=== PATIENT | male | born 1975 | race Caucasian/White ===

== ENCOUNTER → 2016-07-29 | Outpatient (CLI) | payer OTHER ==
--- NOTE | 2016-07-29 13:00 | XR ---
EXAMINATION TYPE: XR knee limited LT DATE OF EXAM: 07/29/2016 12:54 PM CLINICAL HISTORY: pain TECHNIQUE: Two views of the left knee are obtained. COMPARISON: None. FINDINGS: There is no acute fracture/dislocation. The tri-compartment joint spaces appear moderatel y narrowed. There are postoperative changes are noted. The overlying soft tissue appears unremarkable . IMPRESSION: There is no acute fracture or dislocation ICD 10 NO FRACTURE, INITIAL EVALUATION
--- NOTE | 2016-07-29 13:03 | XR ---
EXAMINATION TYPE: XR forearm bilateral DATE OF EXAM: 07/29/2016 12:54 PM CLINICAL HISTORY: pain TECHNIQUE: Frontal and lateral images of the right forearm are obtained. COMPARISON: None. FINDINGS: There is no acute fracture/dislocation evident. Fixation plate and screws traversing site of remote ulnar fracture identified. Several of the screws appear to be fractured. Fracture line cont inues to be visible compatible with nonunion. The joint spaces appear within normal limits. The over lying soft tissue appears unremarkable. IMPRESSION: There is no acute fracture or dislocation. Postoperative changes as discussed. EXAMINATION TYPE: XR forearm bilateral DATE OF EXAM: 07/29/2016 12:54 PM CLINICAL HISTORY: pain TECHNIQUE: Frontal and lateral images of the left forearm are obtained. COMPARISON: None. FINDINGS: There is no acute fracture/dislocation evident. Fixation plate and screws are noted involv ing the radius and ulna. No fracture lines are visible this time. The joint spaces appear within norm al limits. The overlying soft tissue appears unremarkable.
== END | disposition home or self-care (01) ==
LOC: RADXRMAIN 12:20
PROVIDERS: ATTEND Family Medicine
DX: M25.562 Pain in left knee (principal); M79.631 Pain in right forearm; M79.632 Pain in left forearm; Z98.890 Other specified postprocedural states

== ENCOUNTER 2024-06-24 10:29 | Inpatient (IN) | payer BC, OTHER ==
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
[2024-06-24 10:59] LABS: Basophils # (A) 0.1 k/uL (0-0.2); Basophils % (A) 1 %; Eosinophils # (A) 0.1 k/uL (0-0.7); Eosinophils % (A) 1 %; HCT 44.6 % (39.0-53.0); HGB 15.2 gm/dL (13.0-17.5); Lymphocytes # (A) 1.8 k/uL (1.0-4.8); Lymphocytes % (A) 19 %; MCH 32.6 pg (25.0-35.0); MCHC 33.9 g/dL (31.0-37.0); Mean Platelet Volume 7.5; Monocytes # (A) 0.5 k/uL (0-1.0); Monocytes % (A) 5 %; Neutrophils # (A) 6.9 k/uL (1.3-7.7); Neutrophils % (A) 73 %; Platelet Count 261 k/uL (150-450); RBC 4.65 m/uL (4.30-5.90); RDW 12.1 % (11.5-15.5); WBC 9.4 k/uL (3.8-10.6)
[2024-06-24 11:13] LABS: Partial Thromboplastin Time 24.5 sec (22.0-30.0); Prothrombin Time 11.3 sec (10.0-12.5)
[2024-06-24 11:17] LABS: ALT 39 U/L (4-49); AST 28 U/L (17-59); African American GFR (CKD) >90 (>60 ml/min/1.73 sqM); Albumin 4.6 g/dL (3.5-5.0); Alkaline Phosphatase 87 U/L (38-126); Anion Gap 7 mmol/L; Blood Urea Nitrogen 9 mg/dL (9-20); Calcium 9.1 mg/dL (8.4-10.2); Carbon Dioxide 25 mmol/L (22-30); Chloride 102 mmol/L (98-107); Glucose 303 mg/dL (74-99); Magnesium 1.7 mg/dL (1.6-2.3); Non-African American GFR(CKD) >90 (>60 ml/min/1.73 sqM); Potassium 4.2 mmol/L (3.5-5.1); Sodium 134 mmol/L (137-145); Total Bilirubin 0.7 mg/dL (0.2-1.3)
[2024-06-24] MEDS: ASPIRIN 81 MG PO STA (12:45)
[2024-06-24] MEDS: NITROGLYCERIN OINT 1 INCH/GM PACKET TOPICAL STA (12:46)
--- NOTE | 2024-06-24 13:02 | XR ---
EXAMINATION TYPE: XR chest 2V DATE OF EXAM: 06/24/2024 11:54 AM COMPARISON: None. CLINICAL INDICATION: Male, 49 years old with history of Chest Pain, TECHNIQUE: XR chest 2V view(s) obtained. FINDINGS: The heart size is normal. The pulmonary vasculature is normal. The lungs are clear. IMPRESSION: 1. No acute pulmonary process. [facility], , 06/24/2024 1:00 PM
[2024-06-24] MEDS: ONDANSETRON 4 MG/2 ML VIAL IVP STA (13:03)
[2024-06-24] MEDS ORDERED: NITROGLYCERIN SL TABS 0.4 MG TAB SUBLINGUAL PRN (13:11)
[2024-06-24] MEDS: HYDROmorphone 0.5 MG/0.5 ML SYRINGE IVP STA (13:24)
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
[2024-06-24 15:58] LABS: Glucose,Whole Blood 223 mg/dL (70-110)
[2024-06-24] MEDS: HEPARIN SODIUM 1,000 UN/ML (10ML VL) IVP STA (16:26)
[2024-06-24] MEDS: ATORVASTATIN 80 MG TAB PO STA (16:27)
[2024-06-24 18:26] LABS: Glucose,Whole Blood 207 mg/dL (70-110)
[2024-06-24] MEDS: NITROGLYCERIN OINT 1 INCH/GM PACKET TOPICAL SCH (18:42)
[2024-06-24] MEDS ORDERED: HEPARIN SODIUM 1,000 UN/ML (10ML VL) IV PRN (19:16)
[2024-06-24] MEDS: METOPROLOL TARTRATE 50 MG TAB PO STA (19:34)
[2024-06-24] MEDS: HEPARIN SODIUM 1,000 UN/ML (10ML VL) IV ONE ×2 (19:41→20:30)
[2024-06-24] MEDS: HEPARIN SOD,PORK IN 0.45% NACL 25,000 UNIT in 0.45% NACL 1 250ML.BAG IV SCH (19:41)
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
[2024-06-24] MEDS: SODIUM CHLORIDE 0.9% 500 ML 500 ML IV ONE (20:15)
[2024-06-24] MEDS: MIDAZOLAM 2 MG/2 ML VIAL IVP ONE (20:15)
[2024-06-24] MEDS: LIDOCAINE 1% INJ 10MG/ML (20 ML MDV) SQ ONE (20:16)
[2024-06-24] MEDS: VERAPAMIL SYRINGE (5 MG/10 ML) INTRAARTER ONE (20:19)
[2024-06-24] MEDS: IOPAMIDOL-370 100ML BTL INJ ONE (20:36)
[2024-06-24] MEDS ORDERED: RX INFO: IV CONTRAST WAS GIVEN 1 EACH MISC MISCELLANE PRN (20:40)
--- NOTE | 2024-06-24 20:50 | P.PCN ---
Date of Procedure: 06/24/24 Operative Findings: CARDIAC CATHETERIZATION PERFORMING PHYSICIAN: Darion Apodaca MD, RPVI PROCEDURE PERFORMED: 1. Selective right and left coronary angiogram and left heart catheterization 2. IFR of the LAD 3. Ultrasound-guided access of the right radial artery INDICATION: Acute coronary send COMPLICATION: None APPROACH: Right radial artery LEVEL OF SEDATION: Moderate with a sedation length of 26 minutes minutes PROCEDURE DESCRIPTION: After obtaining an informed consent, the patient was brought to cardiac construction craft laborer. Local anesthesia was performed using lidocaine subcutaneously. The right radial artery was cannulated using Seldinger technique, the guidewire passed easily, following that we advanced a 5-Canadian sheath dilator assembly, the wire and dilator were removed and sheath was flushed. Following that, 2 mg of verapamil along with 5000 unit heparin were given. Selective right and left coronary angiogram using a 6-Canadian JR4 and JL 3.5 catheters. Following that we did left heart catheterization using 6-Canadian pigtail catheter. After that we decided to do an IFR of the LAD with after zeroing Dobler wire and equalizing between the Dobler wire and guiding catheter and that was JL 3.5 guiding catheter the left main was engaged and the LAD was wired. The Dobler wire was advanced to the distal LAD and IFR came to be at 0.88 and subsequently pulling back the Dobler wire to be between the lesion in the distal LAD and proximal LAD with IFR came to be at 0.91 which is nonischemic The procedure was completed there was no complication. SELECTIVE CORONARY ANGIOGRAM: The right coronary artery: Small to medium caliber vessel nondominant vessel with mild disease Left main: Is angiographically normal The left circumflex: Large-caliber vessel a dominant vessel with mild disease only. The left anterior descending artery: Has a focal intermediate lesion proximally documented to be nonflow limiting by Doppler wire with IFR of 0.91 and diffuse intermediate lesion distally documented to be flow-limiting with IFR of 0.88 HEMODYNAMICS: The LVEDP was about 10 mmHg with no significant gradient across aortic valve CONCLUSION: 1. None flow-limiting involving the proximal LAD and flow-limiting lesion involving the distal LAD 2. Normal left-sided filling pressure POSTPROCEDURE MANAGEMENT: Consider aggressive cholesterol control and risk factors modification and medical treatment at this point Consider PCI of the LAD distally if the patient remains symptomatic
[2024-06-24 21:25] LABS: Glucose,Whole Blood 222 mg/dL (70-110)
[2024-06-24] MEDS: INSULIN ASPART (NovoLOG) 100 UNIT/ML VIAL SQ SCH (21:46)
[2024-06-24] MEDS: ACETAMINOPHEN TAB 325 MG TAB PO PRN (21:48)
[2024-06-24] MEDS: METOPROLOL TARTRATE 50 MG TAB PO SCH (22:29)
[2024-06-24] MEDS: SODIUM CHLORIDE 0.9% 1,000 ML IV SCH (22:40)
[2024-06-25 06:21] LABS: Glucose,Whole Blood 226 mg/dL (70-110)
[2024-06-25 07:02] LABS: Basophils # (A) 0.1 k/uL (0-0.2); Basophils % (A) 1 %; Eosinophils # (A) 0.1 k/uL (0-0.7); Eosinophils % (A) 1 %; HCT 43.8 % (39.0-53.0); HGB 14.4 gm/dL (13.0-17.5); Lymphocytes # (A) 2.2 k/uL (1.0-4.8); Lymphocytes % (A) 32 %; MCH 31.7 pg (25.0-35.0); MCHC 32.9 g/dL (31.0-37.0); MCV 96.3 fL (80.0-100.0); Mean Platelet Volume 7.8; Monocytes # (A) 0.4 k/uL (0-1.0); Monocytes % (A) 6 %; Neutrophils # (A) 3.9 k/uL (1.3-7.7); Neutrophils % (A) 56 %; Platelet Count 236 k/uL (150-450); RBC 4.55 m/uL (4.30-5.90); RDW 12.2 % (11.5-15.5)
[2024-06-25 07:14] LABS: INR 1.1 (<1.2); Prothrombin Time 11.9 sec (10.0-12.5)
[2024-06-25] MEDS: CLOPIDOGREL 75 MG TAB PO SCH (07:57)
[2024-06-25] MEDS: ASPIRIN 81 MG PO SCH (07:57)
[2024-06-25] MEDS: LOSARTAN 25 MG TAB PO SCH (07:58)
[2024-06-25] MEDS: ATORVASTATIN 80 MG TAB PO SCH (08:00)
[2024-06-25] MEDS ORDERED: ASPIRIN 325 MG TAB PO SCH (09:00)
[2024-06-25 09:30] LABS: Chol/HDL Ratio 4.87 Ratio; LDL Cholesterol,Calculated 112.4 mg/dL (0.0-131.0)
[2024-06-25] MEDS: CLOPIDOGREL 75 MG TAB PO STA (11:09)
[2024-06-25 11:40] LABS: Glucose,Whole Blood 306 mg/dL (70-110)
--- NOTE | 2024-06-25 12:13 | CA ---
Transthoracic Echo Report Name: Crow Arana Age: 49 Gender: M : 1975 Exam Date: 06/25/2024 07:59 Exam Location: [facility] Ht (in): 70 Wt (lb): 200 Ordering Physician: Darion Apodaca MD ([id number]) Attending/Referring Phys: Data Analysis Manager Carlene Green RDCS Procedure CPT: Indications: ACS Cardiac Hx: Technical Quality: Technically difficult study Contrast 1: Definity Total Dose (mL): 1 Contrast 2: Total Dose (mL): MEASUREMENTS (Male / Female) Normal Values 2D ECHO LV Diastolic Diameter PLAX 4.9 cm 4.2 - 5.9 / 3.9 - 5.3 cm LV Systolic Diameter PLAX 3.2 cm IVS Diastolic Thickness 0.9 cm 0.6 - 1.0 / 0.6 - 0.9 cm LVPW Diastolic Thickness 1.0 cm 0.6 - 1.0 / 0.6 - 0.9 cm LV Relative Wall Thickness 0.4 LVOT Diameter 2.1 cm LA Volume 43.5 cm??? 18 - 58 / 22 - 52 cm??? LA Volume Index 20.3 cm???/m??? 16 - 28 cm???/m??? Ascending Aorta Diameter 3.4 cm DOPPLER AV Peak Velocity 149.3 cm/s AV Peak Gradient 8.9 mmHg AV Mean Velocity 95.5 cm/s AV Mean Gradient 4.2 mmHg AV Velocity Time Integral 29.3 cm LVOT Peak Velocity 108.0 cm/s LVOT Peak Gradient 4.7 mmHg LVOT Velocity Time Integral 21.9 cm LVOT Stroke Volume 78.2 cm??? LVOT Stroke Volume Index 37.5 ml/m??? LVOT Cardiac Index 2415.5 cm???/min???m??? AV Area Cont Eq vti 2.7 cm??? AV Area Cont Eq pk 2.6 cm??? MV Area PHT 6.0 cm??? Mitral E Point Velocity 79.7 cm/s Mitral A Point Velocity 66.4 cm/s Mitral E to A Ratio 1.2 MV Deceleration Time 127.0 ms FINDINGS Left Ventricle Left ventricular ejection fraction is estimated at 50-55 %. Left ventricular cavity size normal. Left ventricular wall thickness normal. Hypokinetic anterior wall. Right Ventricle Normal right ventricular size and function. Unable to estimate the right ventricular systolic pressure. Right Atrium Normal right atrial size. Left Atrium Normal left atrial size. Mitral Valve Structurally normal mitral valve. No evidence for mitral valve prolapse. No mitral stenosis. Trace to mild mitral regurgitation. Aortic Valve Trileaflet aortic valve. Aortic valve sclerosis. No aortic valve stenosis or regurgitation. Tricuspid Valve Structurally normal tricuspid valve. No tricuspid stenosis. Trace tricuspid regurgitation. Pulmonic Valve Pulmonic valve not well visualized. No pulmonic stenosis. No pulmonic regurgitation. Pericardium No pericardial effusion. Aorta Normal size aortic root and proximal ascending aorta. CONCLUSIONS Indication for echo: Acute myocardial infarction Preserved LV systolic function with anteroapical hypokinesis, ejection fraction of about 50 to 55% Previewed by: Dr. Garfield Benz MD (Electronically Signed) Final Date: 25 June 2024 12:12
[2024-06-25] MEDS ORDERED: ALBUTEROL NEBULIZED 2.5 MG/3 ML INHALATION PRN (12:28)
--- NOTE | 2024-06-25 12:45 | P.PN ---
Subjective Progress Note Date: 06/25/24 This is Isaac Young NP, I'm dictating on behalf of Dr. Benz's H&P and A&P. Patient was interviewed and examined. Patient is a pleasant 49-year-old male who presented to the hospital with chest pain and a subsequent acute myocardial infarction. Patient had spontaneous thrombolysis of the offending clot with EKGs demonstrating the time of thrombolysis and improvement. Patient reports that he is feeling good today. He is denying chest pain and shortness of breath today. GENERAL: Well-appearing, well-nourished and in no acute distress. NECK: Supple without JVD or thyromegaly. LUNGS: Breath sounds clear to auscultation bilaterally. Respiration equal and unlabored. No wheezes, rales or rhonchi. HEART: Regular rate and rhythm without murmurs, rubs or gallops. S1 and S2 heard. EXTREMITIES: Normal range of motion, no edema. No clubbing or cyanosis. Peripheral pulses intact and strong. VITALS: Temp 98.3, pulse 64, respirations 16, blood pressure 124/70, O2 saturation 97% on room air TELEMETRY: Sinus mechanism LABS: White count 7, hemoglobin 14.4, platelets 236, triglycerides 54, cholesterol 155, LDL 112.4, HDL 31.8 IMPRESSION: 1. Acute myocardial infarction 2. Right bundle branch block 3. Longstanding type 2 diabetes 4. Current smoker PLAN: Give Plavix 300 mg today. Continue heparin. Will continue to monitor patient to ensure medical treatment is working. Patient had spontaneous thrombolysis of the clot in the distal LAD, which is a small caliber vessel. Further recommendations based on patient's clinical course. Objective - Vital Signs Vital signs: Vital Signs Temp 98.3 F 06/25/24 07:52 Pulse 64 06/25/24 07:52 Resp 16 06/25/24 07:52 BP 124/70 06/25/24 07:52 Pulse Ox 96 06/25/24 09:13 FiO2 Intake & Output 06/24/24 06/25/24 06/25/24 18:59 06:59 18:59 Intake Total 144.5 240 Balance 144.5 240 Weight 90.718 kg 92.1 kg Intake: IV 50 Intake, IV Titration 94.5 Amount Heparin Sod,Pork in 0.45% 94.5 NaCl 25,000 unit In 0.45 % NaCl 1 250ml.bag @ 11. 023 UNITS/KG/HR 10 mls/hr IV .Q24H [facility] Rx#: [id number] Oral 240 Other: Voiding Method Toilet Urinal # Voids 1 - Labs CBC & Chem 7: 06/25/24 06:36 06/24/24 10:51 Labs: Abnormal Lab Results - Last 24 Hours (Table) 06/24/24 06/24/24 06/24/24 Range/Units 14:30 15:57 18:12 POC Glucose (mg/dL) 223 H (70-110) mg/dL Troponin I 1.500 H* 19.500 H* (0.000-0.034) ng/mL HDL Cholesterol (40.00-60.00) mg/dL 06/24/24 06/24/24 06/25/24 Range/Units 18:24 21:24 06:20 POC Glucose (mg/dL) 207 H 222 H 226 H (70-110) mg/dL Troponin I (0.000-0.034) ng/mL HDL Cholesterol (40.00-60.00) mg/dL 06/25/24 06/25/24 Range/Units 06:36 11:38 POC Glucose (mg/dL) 306 H (70-110) mg/dL Troponin I (0.000-0.034) ng/mL HDL Cholesterol 31.80 L (40.00-60.00) mg/dL
[2024-06-25 13:45] LABS: Blood Urea Nitrogen 8.6 mg/dL (9.0-27.0); Calcium 8.7 mg/dL (8.7-10.3); Carbon Dioxide 20.2 mmol/L (21.6-31.8); Chloride 102 mmol/L (96-109); Glucose 232 mg/dL (70-110); Magnesium 1.9 mg/dL (1.5-2.4); Potassium 4.3 mmol/L (3.5-5.5); Sodium 135 mmol/L (135-145)
--- NOTE | 2024-06-25 14:04 | P.PN ---
Subjective Progress Note Date: 06/25/24 Patient is reevaluated for his chest pain. Overnight his troponin went from 0- 1.5. A STEMI alert was called. ER had already put you on aspirin atorvastatin and losartan. He was finally taken to [facility] after third troponin returned at 19. He was found to have a normal left-sided filling pressure and a flow minute involvement of the proximal LAD. Stent was not needed. PCI to LAD distal stent was recommended in the future. Patient indicates he is now pain-free. Although he was found eating a salad with ranch dressing and pepperoni pizza. Diet modification was discussed with him at length along with compliance with his medications. His family was at bedside seems to understand as well. Objective - Vital Signs Vital signs: Vital Signs Temp 98.3 F 06/25/24 07:52 Pulse 64 06/25/24 07:52 Resp 16 06/25/24 07:52 BP 124/70 06/25/24 07:52 Pulse Ox 96 06/25/24 09:13 FiO2 Intake & Output 06/24/24 06/25/24 06/25/24 18:59 06:59 18:59 Intake Total 144.5 320.5 Balance 144.5 320.5 Weight 90.718 kg 92.1 kg Intake: IV 50 Intake, IV Titration 94.5 80.5 Amount Heparin Sod,Pork in 0.45% 94.5 80.5 NaCl 25,000 unit In 0.45 % NaCl 1 250ml.bag @ 11. 023 UNITS/KG/HR 10 mls/hr IV .Q24H [facility] Rx#: [id number] Oral 240 Other: Voiding Method Toilet Urinal # Voids 1 - Exam general: The patient is awake and alert, in no distress, and does not appear acutely ill. Neck: The neck is supple, there is no thyromegaly, lymphadenopathy, tenderness or JVD. Cardiovascular: S1S2 is normal, There is a regular rate and rhythm. No murmur, rub or gallop is appreciated. Respiratory: Lungs are clear to auscultation bilaterally, respirations are non-labored, breath sounds are equal. Gastrointestinal: Soft, non-distended, non-tender abdomen without masses or organomegaly noted. There is no rebound or guarding present. Bowel sounds are unremarkable. Musculoskeletal: Normal ROM, no tenderness, There is no pedal edema. There is no calf tenderness or swelling. No cords were appreciated. Neurological: CN II-XII intact, there are no obvious motor or sensory deficits. Coordination appears grossly intact. Speech is normal. Skin: Skin is warm and dry and no rashes or lesions are noted. - Labs CBC & Chem 7: 06/25/24 06:36 06/25/24 06:36 Labs: Abnormal Lab Results - Last 24 Hours (Table) 06/24/24 06/24/24 06/24/24 Range/Units 14:30 15:57 18:12 Carbon Dioxide (21.6-31.8) mmol/L Anion Gap (4.00-12.00) mmol/L BUN (9.0-27.0) mg/dL Glucose (70-110) mg/dL POC Glucose (mg/dL) 223 H (70-110) mg/dL Troponin I 1.500 H* 19.500 H* (0.000-0.034) ng/mL HDL Cholesterol (40.00-60.00) mg/dL 06/24/24 06/24/24 06/25/24 Range/Units 18:24 21:24 06:20 Carbon Dioxide (21.6-31.8) mmol/L Anion Gap (4.00-12.00) mmol/L BUN (9.0-27.0) mg/dL Glucose (70-110) mg/dL POC Glucose (mg/dL) 207 H 222 H 226 H (70-110) mg/dL Troponin I (0.000-0.034) ng/mL HDL Cholesterol (40.00-60.00) mg/dL 06/25/24 06/25/24 06/25/24 Range/Units 06:36 06:36 11:38 Carbon Dioxide 20.2 L (21.6-31.8) mmol/L Anion Gap 12.80 H (4.00-12.00) mmol/L BUN 8.6 L (9.0-27.0) mg/dL Glucose 232 H (70-110) mg/dL POC Glucose (mg/dL) 306 H (70-110) mg/dL Troponin I (0.000-0.034) ng/mL HDL Cholesterol 31.80 L (40.00-60.00) mg/dL Assessment and Plan (1) Acute [place] Current Visit: Yes Status: Acute Code(s): I21.9 - ACUTE MYOCARDIAL INFARCTION, UNSPECIFIED SNOMED Code(s): 40920839 (2) Type 2 diabetes mellitus without complications Current Visit: Yes Status: Ruled-out Code(s): E11.9 - TYPE 2 DIABETES MELLITUS WITHOUT COMPLICATIONS SNOMED Code(s): 345555454 (3) Non-compliance Current Visit: Yes Status: Acute Code(s): Z91.199 - PT NONCOMPL WITH OTHER MED TRTMT AND REGIMEN D/T UNSP REASON SNOMED Code(s): 3527988 (4) Chest pain Current Visit: Yes Status: Acute Code(s): R07.9 - CHEST PAIN, UNSPECIFIED SNOMED Code(s): 06568693 (5) Type 2 diabetes mellitus with other circulatory complications Current Visit: Yes Status: Acute Code(s): E11.59 - TYPE 2 DIABETES MELLITUS WITH OTH CIRCULATORY COMPLICATIONS SNOMED Code(s): 56460872 (6) Type 2 diabetes mellitus with other specified complication Current Visit: Yes Status: Acute Code(s): E11.69 - TYPE 2 DIABETES MELLITUS WITH OTHER SPECIFIED COMPLICATION SNOMED Code(s): 29434923 (7) Dyslipidemia (high LDL; low HDL) Current Visit: Yes Status: Acute Code(s): E78.5 - HYPERLIPIDEMIA, UNSPECIFIED SNOMED Code(s): 767563661 Plan: Wait on further recommendations per cardiology, continue current heparin drip ,repeat labs in a.m., wait on his A1c, continue his medications as ordered, he will be reevaluated the next 24 hours.
[2024-06-25 17:00] LABS: Glucose,Whole Blood 257 mg/dL (70-110)
[2024-06-25 20:11] LABS: Glucose,Whole Blood 192 mg/dL (70-110)
[2024-06-25] MEDS: INSULIN DETEMIR (LEVEMIR) 100 UNIT/ML SYR SQ SCH (20:22)
[2024-06-26 07:13] LABS: Glucose,Whole Blood 133 mg/dL (70-110)
[2024-06-26 07:13] LABS: Basophils # (A) 0.1 k/uL (0-0.2); Basophils % (A) 1 %; Eosinophils # (A) 0.1 k/uL (0-0.7); Eosinophils % (A) 1 %; HCT 44.2 % (39.0-53.0); HGB 14.9 gm/dL (13.0-17.5); Lymphocytes # (A) 2.2 k/uL (1.0-4.8); Lymphocytes % (A) 28 %; MCH 32.1 pg (25.0-35.0); MCHC 33.7 g/dL (31.0-37.0); MCV 95.2 fL (80.0-100.0); Mean Platelet Volume 8.3; Monocytes # (A) 0.6 k/uL (0-1.0); Monocytes % (A) 7 %; Neutrophils # (A) 4.7 k/uL (1.3-7.7); Neutrophils % (A) 60 %; Platelet Count 251 k/uL (150-450); RBC 4.65 m/uL (4.30-5.90); RDW 12.6 % (11.5-15.5); WBC 7.8 k/uL (3.8-10.6)
[2024-06-26 09:16] LABS: ALT 46 U/L (4-49); AST 59 U/L (17-59); African American GFR (CKD) >90 (>60 ml/min/1.73 sqM); Albumin 3.9 g/dL (3.5-5.0); Alkaline Phosphatase 70 U/L (38-126); Anion Gap 7 mmol/L; Blood Urea Nitrogen 13 mg/dL (9-20); Calcium 8.7 mg/dL (8.4-10.2); Carbon Dioxide 26 mmol/L (22-30); Chloride 101 mmol/L (98-107); Glucose 270 mg/dL (74-99); Non-African American GFR(CKD) >90 (>60 ml/min/1.73 sqM); Potassium 4.7 mmol/L (3.5-5.1); Sodium 134 mmol/L (137-145); Total Protein 6.9 g/dL (6.3-8.2)
[2024-06-26 09:57] VITALS: RESP 16
[2024-06-26] MEDS: CLOPIDOGREL 75 MG TAB PO SCH (09:58)
--- NOTE | 2024-06-26 11:24 | P.PN ---
Subjective Progress Note Date: 06/26/24 This is Isaac Young NP, I'm dictating on behalf of Dr. Benz's H&P and A&P. Patient was interviewed and examined. Patient is a pleasant 49-year-old male who came into the hospital with a NH, that spontaneously resolved due to thrombolysis. Patient reports that he is feeling okay today. He is denying chest pain, heart palpitations, shortness of breath, dizziness. He reports has been walking around the room and up and down the hallways without any symptoms. GENERAL: Well-appearing, well-nourished and in no acute distress. NECK: Supple without JVD or thyromegaly. LUNGS: Breath sounds clear to auscultation bilaterally. Respiration equal and unlabored. No wheezes, rales or rhonchi. HEART: Regular rate and rhythm without murmurs, rubs or gallops. S1 and S2 heard. EXTREMITIES: Normal range of motion, no edema. No clubbing or cyanosis. Peripheral pulses intact and strong. VITALS: Temp 98.0, pulse 69, respirations 16, blood pressure 142/75, O2 saturation 99% on room air TELEMETRY: Sinus mechanism LABS: Sodium 134, potassium 4.7, BUN 13, creatinine 0.71 IMPRESSION: 1. Acute myocardial infarction 2. Right bundle branch block 3. Longstanding type 2 diabetes 4. Current smoker PLAN: Continue dual antiplatelet therapy with aspirin 81 mg daily, clopidogrel 75 mg daily. Continue atorvastatin 80 mg daily. Continue losartan 25 mg daily. Continue metoprolol succinate 50 mg daily. From a cardiology standpoint the patient can be discharged. Follow-up with Dr. Benz in 1 to 2 weeks. Objective - Vital Signs Vital signs: Vital Signs Temp 98.0 F 06/26/24 09:57 Pulse 69 06/26/24 09:57 Resp 16 06/26/24 09:57 BP 142/75 06/26/24 09:57 Pulse Ox 99 06/26/24 09:57 FiO2 Intake & Output 06/25/24 06/26/24 06/26/24 18:59 06:59 18:59 Intake Total 870.5 20 245 Balance 870.5 20 245 Weight 92.6 kg Intake: IV 10 20 5 Invasive Line 1 10 20 5 Intake, IV Titration 80.5 Amount Heparin Sod,Pork in 0.45% 80.5 NaCl 25,000 unit In 0.45 % NaCl 1 250ml.bag @ 11. 023 UNITS/KG/HR 10 mls/hr IV .Q24H [facility] Rx#: [id number] Oral 780 240 Other: Voiding Method Toilet Toilet Toilet Urinal Urinal Urinal # Voids 3 1 # Bowel Movements 1 - Labs CBC & Chem 7: 06/26/24 06:19 06/26/24 08:02 Labs: Abnormal Lab Results - Last 24 Hours (Table) 06/25/24 06/25/24 06/25/24 Range/Units 06:36 06:36 11:38 Sodium (137-145) mmol/L Carbon Dioxide 20.2 L (21.6-31.8) mmol/L Anion Gap 12.80 H (4.00-12.00) mmol/L BUN 8.6 L (9.0-27.0) mg/dL Glucose 232 H (70-110) mg/dL POC Glucose (mg/dL) 306 H (70-110) mg/dL Hemoglobin A1c 9.8 H (<=6.0) % 06/25/24 06/25/24 06/26/24 Range/Units 16:49 20:10 07:12 Sodium (137-145) mmol/L Carbon Dioxide (21.6-31.8) mmol/L Anion Gap (4.00-12.00) mmol/L BUN (9.0-27.0) mg/dL Glucose (70-110) mg/dL POC Glucose (mg/dL) 257 H 192 H 133 H (70-110) mg/dL Hemoglobin A1c (<=6.0) % 06/26/24 Range/Units 08:02 Sodium 134 L (137-145) mmol/L Carbon Dioxide (21.6-31.8) mmol/L Anion Gap (4.00-12.00) mmol/L BUN (9.0-27.0) mg/dL Glucose 270 H (70-110) mg/dL POC Glucose (mg/dL) (70-110) mg/dL Hemoglobin A1c (<=6.0) %
[2024-06-26 11:34] LABS: Glucose,Whole Blood 359 mg/dL (70-110)
[2024-06-26 11:47] VITALS: BP 130/79; PULSE 57; TEMP 98.3
--- NOTE | 2024-06-26 12:32 | P.DS ---
Providers Date of admission: 06/24/24 13:12 Expected date of discharge: 06/26/24 Attending physician: Nicola Esqueda Consults: 06/24/24 13:11 Consult Physician Urgent Consulting Provider: [facility] Consult Reason/Comments: Chest pain Do you want consulting provider notified?: Yes Primary care physician: Yoni Castañeda - Discharge Diagnosis(es) (1) Acute [place] Current Visit: Yes Status: Acute (2) Type 2 diabetes mellitus without complications Current Visit: Yes Status: Ruled-out (3) Non-compliance Current Visit: Yes Status: Acute (4) Chest pain Current Visit: Yes Status: Acute (5) Type 2 diabetes mellitus with other circulatory complications Current Visit: Yes Status: Acute (6) Type 2 diabetes mellitus with other specified complication Current Visit: Yes Status: Acute (7) Dyslipidemia (high LDL; low HDL) Current Visit: Yes Status: Acute Hospital Course: Patient was reevaluated. He is cleared by cardiology. He has been started on some new medications. He reports previously being prescribed atorvastatin but not taking it due to side effects. Diet education was done extensively with him and controlling his diabetes. He is stable and will be sent home. Plan - Discharge Summary Discharge Rx Participant: Yes New Discharge Prescriptions: New Losartan [Cozaar] 25 mg PO DAILY #90 tab Aspirin EC [Ecotrin Low Dose] 81 mg PO DAILY #90 tab Clopidogrel [Plavix] 75 mg PO DAILY #90 tablet Metoprolol Succinate [Toprol XL] 50 mg PO DAILY #90 tab Nitroglycerin Sl Tabs [Nitrostat] 0.4 mg SUBLINGUAL Q5M PRN #30 tab PRN Reason: Chest Pain Atorvastatin [Lipitor] 80 mg PO DAILY #90 tab Aspirin 81 mg PO DAILY tab Losartan [Cozaar] 25 mg PO DAILY tab Atorvastatin [Lipitor] 80 mg PO DAILY tab Metoprolol Tartrate [Lopressor] 50 mg PO BID tab Clopidogrel [Plavix] 75 mg PO DAILY tab Acetaminophen Tab [Tylenol] 650 mg PO Q6HR PRN tab PRN Reason: Fever And/ Or Pain Continue glyBURIDE [Diabeta] 5 mg PO BID Albuterol Inhaler [Ventolin Hfa Inhaler] 2 puff INHALATION RT-Q4H PRN PRN Reason: Shortness Of Breath metFORMIN HCL 1,000 mg PO BID Insulin Glargine-Yfgn [Semglee (Yfgn) Pen] 22 - 25 unit SQ HS Discharge Medication List Albuterol Inhaler [Ventolin Hfa Inhaler] 2 puff INHALATION RT-Q4H PRN 06/24/24 [History] Insulin Glargine-Yfgn [Semglee (Yfgn) Pen] 22 - 25 unit SQ HS 06/24/24 [History] glyBURIDE [Diabeta] 5 mg PO BID 06/24/24 [History] metFORMIN HCL 1,000 mg PO BID 06/24/24 [History] Acetaminophen Tab [Tylenol] 650 mg PO Q6HR PRN tab 06/26/24 [Rx] Aspirin 81 mg PO DAILY tab 06/26/24 [Rx] Aspirin EC [Ecotrin Low Dose] 81 mg PO DAILY #90 tab 06/26/24 [Rx] Atorvastatin [Lipitor] 80 mg PO DAILY tab 06/26/24 [Rx] Atorvastatin [Lipitor] 80 mg PO DAILY #90 tab 06/26/24 [Rx] Clopidogrel [Plavix] 75 mg PO DAILY tab 06/26/24 [Rx] Clopidogrel [Plavix] 75 mg PO DAILY #90 tablet 06/26/24 [Rx] Losartan [Cozaar] 25 mg PO DAILY tab 06/26/24 [Rx] Losartan [Cozaar] 25 mg PO DAILY #90 tab 06/26/24 [Rx] Metoprolol Succinate [Toprol XL] 50 mg PO DAILY #90 tab 06/26/24 [Rx] Metoprolol Tartrate [Lopressor] 50 mg PO BID tab 06/26/24 [Rx] Nitroglycerin Sl Tabs [Nitrostat] 0.4 mg SUBLINGUAL Q5M PRN #30 tab 06/26/24 [Rx] Follow up Appointment(s)/Referral(s): Garfield Benz MD [STAFF PHYSICIAN] - 1 Week Yoni Castañeda Jr, DO [Primary Care Provider] - 1-2 days Discharge Disposition: HOME SELF-CARE
== END 2024-06-26 13:09 | disposition home or self-care (01) | DRG 282 ==
LOC: EC 10:29 → 6NMEDSUR 13:12 → 3SCARD 16:12 → 2SICU 16:19 → OBSVTOIN 16:23 → 3SCARD 18:01 → 2SICU 20:52 → 3SCARD 20:58
PROVIDERS: ADMIT Family Medicine; ATTEND Family Medicine
PROC: 4A023N7 Measurement of Cardiac Sampling and Pressure, Left Heart, Percutaneous Approach (ICD-10-PCS; principal; 2024-06-24 16:53)
PROC: 4A033BC Measurement of Arterial Pressure, Coronary, Percutaneous Approach (ICD-10-PCS; principal; 2024-06-24 16:53)
PROC: B2111ZZ Fluoroscopy of Multiple Coronary Arteries using Low Osmolar Contrast (ICD-10-PCS; principal; 2024-06-24 16:53)
DX: I22.9 Subsequent ST elevation (STEMI) myocardial infarction of unspecified site (principal); E11.69 Type 2 diabetes mellitus with other specified complication; E78.00 Pure hypercholesterolemia, unspecified; F17.290 Nicotine dependence, other tobacco product, uncomplicated; E11.59 Type 2 diabetes mellitus with other circulatory complications; I10 Essential (primary) hypertension; I45.10 Unspecified right bundle-branch block; Z79.4 Long term (current) use of insulin; Z79.84 Long term (current) use of oral hypoglycemic drugs; Z91.199 Patient's noncompliance with other medical treatment and regimen due to unspecified reason; Z79.51 Long term (current) use of inhaled steroids; Z79.899 Other long term (current) drug therapy; Z28.310 Unvaccinated for COVID-19; Z28.21 Immunization not carried out because of patient refusal; Z88.5 Allergy status to narcotic agent
CPT/HCPCS: 36415; 71046; 80048; 80053; 80061; 83036; 83735; 84484; 85025; 85610; 85730; 93005; 93306; 93458; 93799; 94760